=== PATIENT | female | born 1970 | race Caucasian/White ===

== ENCOUNTER 2017-01-15 17:49 | Observation (INO) | payer BC ==
[~2017-01-15] VITALS: Ht 157.5 cm; Wt 72.2 kg
[2017-01-15 19:27] LABS: RED BLOOD COUNT 5.05 M/UL (4.00-5.10); WHITE BLOOD COUNT 9.5 K/UL (4.5-11.0)
[2017-01-15 19:49] LABS: BUN/CREATININE RATIO 13 (0-10)
[2017-01-16] MEDS ORDERED: LOPRESSOR100 MG PO (01:58)
[2017-01-16] MEDS ORDERED: LISINOPRIL40 MG PO (01:59)
[2017-01-16] MEDS ORDERED: NORVASC10 MG PO (01:59)
[2017-01-16] MEDS ORDERED: METFORMIN HCL1000 MG PO (02:00)
[2017-01-16] MEDS ORDERED: PROZAC20 MG PO (02:00)
[2017-01-16] MEDS ORDERED: NEURONTIN 300300 MG PO (02:00)
[2017-01-16 07:25] LABS: HEMOGLOBIN 14.6 gm/dl (12.3-15.3); RED BLOOD COUNT 4.92 M/UL (4.00-5.10); WHITE BLOOD COUNT 9.2 K/UL (4.5-11.0)
[2017-01-16 07:44] LABS: BUN/CREATININE RATIO 17 (0-10)
[2017-01-16] MEDS ORDERED: ASPIR-LOW81 MG PO (20:17)
[2017-01-16] MEDS ORDERED: HYDROCHLOROTHIA25 MG PO (20:18)
[2017-01-16] MEDS ORDERED: LIPITOR TAB 2020 MG PO (20:18)
[2017-01-16] MEDS ORDERED: TRANDATE 200 M200 MG PO (20:19)
== END 2017-01-16 22:05 | disposition home or self-care (01) ==
LOC: ER1 17:49 → ZEROF 20:59 → M/S 01-16 00:40
PROVIDERS: Physician Assistant; ADMIT Internal Medicine
DX: I16.0 Hypertensive urgency (principal); E11.9 Type 2 diabetes mellitus without complications; E66.9 Obesity, unspecified; F32.9 Major depressive disorder, single episode, unspecified; Z82.49 Family history of ischemic heart disease and other diseases of the circulatory system; Z79.82 Long term (current) use of aspirin; Z79.891 Long term (current) use of opiate analgesic; Z79.899 Other long term (current) drug therapy; Z88.2 Allergy status to sulfonamides; Z91.14 Patient's other noncompliance with medication regimen; Z86.73 Personal history of transient ischemic attack (TIA), and cerebral infarction without residual deficits
CPT/HCPCS: ECHO; 36415; 70450; 71010; 80048; 80053; 80061; 81001; 82088; 82550; 82553; 82570; 82962; 83735; 83835; 83874; 83880; 84156; 84439; 84443; 84484; 85025; 87086; 93005; 93306; 96372; 96374; 96375; 99285; G0378; J0360; J1650; J1940

== ENCOUNTER → 2020-09-15 | Outpatient (CLI) | payer MEDICARE ==
[~2020-09-15] MED LIST: AMLODIPINE BESY10 MG PO; ASPIR-LOW81 MG PO; CLARITIN10 M2 PO; GLUCOTROL 10 MG10 MG PO; HYDROCHLOROTHIA25 MG PO; LIPITOR TAB 2020 MG PO; LISINOPRIL40 MG PO; LOPRESSOR 50 MG50 MG PO; LOPRESSOR100 MG PO; METFORMIN HCL1000 MG PO; METHOCARBAMOL750 MG PO; NEURONTIN 300300 MG PO; NORVASC10 MG PO; PAXIL10 MG PO; PROZAC20 MG PO; TRANDATE 200 M200 MG PO
== END ==
LOC: MAMO 15:30
DX: Z12.31 Encounter for screening mammogram for malignant neoplasm of breast (principal); Z90.710 Acquired absence of both cervix and uterus
CPT/HCPCS: 77063; 77067

== ENCOUNTER → 2021-05-20 | Outpatient (CLI) | payer MEDICARE | LOC: KOH-I 05-17 13:00 | DX: R07.0 Pain in throat (principal); R13.10 Dysphagia, unspecified; E04.2 Nontoxic multinodular goiter | CPT/HCPCS: 76536 ==

== ENCOUNTER → 2021-10-25 | Outpatient (CLI) | payer MEDICARE | LOC: MAMO 09:30 | DX: Z12.31 Encounter for screening mammogram for malignant neoplasm of breast (principal) | CPT/HCPCS: 77063; 77067 ==

== ENCOUNTER → 2022-04-26 | Outpatient (CLI) | payer MEDICARE | LOC: HEART 5 04-21 08:00 | DX: R07.9 Chest pain, unspecified (principal); R06.02 Shortness of breath | CPT/HCPCS: 78452; A9502; J2785 ==